=== PATIENT | female | born 2000 | race Two or more races ===

== ENCOUNTER 2020-09-30 15:41 | Emergency (ER) | payer OTHER ==
[~2020-09-30] VITALS: Ht 157.5 cm; Wt 68.0 kg
[2020-09-30 16:02] VITALS: BP 128/67
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
== END 2020-09-30 18:04 | disposition home or self-care (01) ==
LOC: ER 15:41 → EDBD 15:41 → ER 18:04
DX: S16.1XXA Strain of muscle, fascia and tendon at neck level, initial encounter (principal); R51.9 Headache, unspecified; R07.89 Other chest pain; M54.6 Pain in thoracic spine; M54.2 Cervicalgia; V98.8XXA Other specified transport accidents, initial encounter; Y93.89 Activity, other specified; Y92.413 State road as the place of occurrence of the external cause; Y99.8 Other external cause status
CPT/HCPCS: 70450; 71046; 72125; 81025; 99285